=== PATIENT | male | born 1960 | race Caucasian/White ===

== ENCOUNTER 2018-10-21 14:04 | Emergency (ER) | payer BC ==
[2018-10-21 14:16] VITALS: BP 120/76
--- NOTE | 2018-10-21 14:23 | UC ---
Dental HPI - HPI Summary HPI Summary: 58 yo male presents with LEFT jaw pain since yesterday. He tells me that is pain just in front of his left ear and is worse with eating/chewing and opening his mouth. Has never had TMJ. Has not taken anything OTC for his symptoms. Denies hearing changes, headache, dizziness, dental pain, or rash. - History of Current Complaint Chief Complaint: UCDentalProblem Stated Complaint: PAINFUL JAW Time Seen by Provider: 10/21/18 14:22 Hx Obtained From: Patient Onset/Duration: Sudden Onset Severity: Mild Pain Intensity: 2 Pain Scale Used: 0-10 Numeric - Allergies/Home Medications Allergies/Adverse Reactions: Allergies Allergy/AdvReac Type Severity Reaction Status Date / Time mold Allergy Difficulty Verified 10/21/18 14:51 Breathing/Wheezing Home Medications: Home Medications Bupropion XL* [Wellbutrin XL *] 450 mg PO DAILY 10/21/18 [History Confirmed ] FLUoxetine CAP* [PROzac CAP*] 40 mg PO DAILY 10/21/18 [History Confirmed ] Lisdexamfetamine (NF) [Vyvanse (NF)] 70 mg PO DAILY 10/21/18 [History Confirmed 10/21/18] Tadalafil [Cialis] 1 - 2 tab PO ONCE PRN 10/21/18 [History Confirmed 10/21/18] PMH/Surg Hx/FS Hx/Imm Hx - Additional Past Medical History Additional PMH: ADHD Psychological History: Anxiety - Surgical History Surgical History: Yes Surgery Procedure, Year, and Place: BILAT HERNIA A CHILD;. LEFT CATARACT 2010 [facility] [place];. VASECTOMY; - Social History Occupation: Employed Full-time Lives: With Family Alcohol Use: None Substance Use Type: None Smoking Status (MU): Never Smoked Tobacco Review of Systems All Other Systems Reviewed And Are Negative: Yes Constitutional: Positive: Negative Skin: Positive: Negative Eyes: Positive: Negative ENT: Positive: Negative Respiratory: Positive: Negative Cardiovascular: Positive: Negative Neurovascular: Positive: Negative Musculoskeletal: Positive: Other: - Left TMJ pain Psychological: Positive: Negative Physical Exam - Summary Physical Exam Summary: GENERAL: NAD. WDWN. No pain distress. SKIN: No rashes, sores, lesions, or open wounds. HEENT: Head: AT/NC Eyes: EOM intact. Conjunctiva clear without inflammation or discharge. Ears: Hearing grossly normal. TMs intact, no bulging, erythema, or edema. Nose: Nasal mucosa pink and moist. NTTP maxillary and frontal sinus. Throat: Posterior oropharynx without exudates, erythema, or tonsillar enlargement. Uvula midline. NECK: Supple. Nontender. No lymphadenopathy. CHEST: CTAB. No r/r/w. No accessory muscle use. Breathing comfortably and in no distress. CV: RRR. Without m/r/g. Pulses intact. Cap refill <2seconds MSK: LEFT TMJ TTP. Pain with opening and closing of jaw. NEURO: Alert. PSYCH: Age appropriate behavior. Triage Information Reviewed: Yes Vital Signs: Initial Vital Signs Temp 96.9 F 10/21/18 14:10 Pulse 100 10/21/18 14:10 Resp 16 10/21/18 14:10 BP 120/76 10/21/18 14:10 Pulse Ox 100 10/21/18 14:10 Vital Signs Reviewed: Yes Dental: Negative: Percussion Tenderness @, Gross Decay/Caries @, Dental Fracture @, Abscess @ Dental Complaint Course/Dx - Course Course Of Treatment: Suspect TMJ. Advised to try tylenol alternating with ibuprofen and advoid large hard to eat food items. He sees a chiropractor regularly for other conditions, therefore I advised him to ask his chiropractor if they treat TMJ and have this evaluated if his discomfort persists - otherwise would consider an OT referral. - Differential Dx/Diagnosis Provider Diagnosis: TMJ (temporomandibular joint disorder) Discharge - Sign-Out/Discharge Documenting (check all that apply): Patient Departure All imaging exams completed and their final reports reviewed: No Studies - Discharge Plan Condition: Stable Disposition: HOME Patient Education Materials: Temporomandibular Disorder (ED) Referrals: Santana Pate MD [Primary Care Provider] - Additional Instructions: If you develop a fever, shortness of breath, chest pain, new or worsening symptoms - please call your PCP or go to the ED. 1) Alternate tylenol and ibuprofen for your discomfort 2) Avoid large food items 3) Please schedule an appt with your Chiropractor if your symptoms continue - Billing Disposition and Condition Condition: STABLE Disposition: Home - Attestation Statements Provider Attestation: Per institutional requirements, I have reviewed the chart, however, I was not consulted specifically or made aware of this patient by the midlevel provider. I did not personally evaluate, interact with , or disposition this patient.
== END 2018-10-21 14:57 | disposition home or self-care (01) ==
LOC: UCEAST 14:04
DX: M26.602 Left temporomandibular joint disorder, unspecified (principal); F90.9 Attention-deficit hyperactivity disorder, unspecified type; Z91.048 Other nonmedicinal substance allergy status
CPT/HCPCS: 99212; G0463